=== PATIENT | female | born 1965 | race Caucasian/White ===

== ENCOUNTER 2018-12-16 19:33 | Emergency (ER) | payer BC ==
[~2018-12-16] VITALS: Ht 170.2 cm; Wt 85.9 kg
[2018-12-16] MEDS ORDERED: PERCOCET 325 MG1 TA2 PO (21:45)
[2018-12-16] MEDS ORDERED: CYCLOBENZAPRINE10 M1 PO (21:45)
[2018-12-16 21:52] VITALS: BP 134/90
== END 2018-12-16 21:51 | disposition home or self-care (01) ==
LOC: ED 19:33
DX: S09.90XA Unspecified injury of head, initial encounter (principal); M54.5 Low back pain; M25.531 Pain in right wrist; Z90.710 Acquired absence of both cervix and uterus; Z98.890 Other specified postprocedural states; Z87.39 Personal history of other diseases of the musculoskeletal system and connective tissue; W01.198A Fall on same level from slipping, tripping and stumbling with subsequent striking against other object, initial encounter; Y93.54 Activity, bowling; Y92.39 Other specified sports and athletic area as the place of occurrence of the external cause